=== PATIENT | female | born 2000 | race Caucasian/White ===

== ENCOUNTER 2022-07-05 17:34 | Emergency (ER) | payer MEDICAID ==
[~2022-07-05] VITALS: Ht 203.2 cm; Wt 140.0 kg
--- NOTE | 2022-07-05 19:22 | NUR ---
provider discussing care at bedside post er visit to see sheet catcher juice
[2022-07-05 19:37] LABS: CLARITY,URINE SLIGHTLY CLOUDY (Clear); COLOR,URINE YELLOW (Yellow); GLUCOSE, URINE NEGATIVE (Neg); KETONES,URINE NEGATIVE (Neg); LEUKOCYTE ESTERASE ,URINE TRACE (Neg); NITRITES, URINE NEGATIVE (Neg); OCCULT BLOOD,URINE NEGATIVE (Neg); PH,URINE 6.5 (4.8-8.0); PROTEIN,URINE 30 mg/dl (Neg); UROBILINOGEN,URINE 0.2 E.U/dL (0.2-1.0)
[2022-07-05 19:43] LABS: UA COLLECTION TYPE NON-SPECIFIED
[2022-07-05 19:46] LABS: BACTERIA,URINE 2+ /HPF (Neg); MUCUS STRANDS FEW /LPF (Neg); RBC,URINE 0-2 /HPF (0-2); SQUAMOUS EPITHELIAL CELL,UR MANY /LPF (FEW); TRANSITIONAL EPI CELLS,URINE FEW /HPF
[2022-07-05 21:15] VITALS: BP 146/89
== END 2022-07-05 21:16 | disposition home or self-care (01) ==
LOC: ER 17:35
DX: O36.8130 Decreased fetal movements, third trimester, not applicable or unspecified (principal); Z3A.37 37 weeks gestation of pregnancy
CPT/HCPCS: 76805; 81001; 99284